=== PATIENT | male | born 1995 | race Caucasian/White ===

== ENCOUNTER 2020-04-16 16:36 | Outpatient (REF) | payer OTHER, SELFPAY | END 2020-04-16 16:37 | disposition home or self-care (01) | LOC: HO.LAB 16:36 | PROVIDERS: Visit Provider Internal Medicine | DX: Z20.822 Contact with and (suspected) exposure to COVID-19 (principal) | CPT/HCPCS: 36415; C9803; U0003 ==

== ENCOUNTER 2020-07-23 12:46 | Outpatient (REF) | payer OTHER, SELFPAY | END 2020-07-23 12:47 | disposition home or self-care (01) | LOC: HO.LAB 12:46 | PROVIDERS: Visit Provider Internal Medicine | DX: Z20.822 Contact with and (suspected) exposure to COVID-19 (principal) | CPT/HCPCS: C9803; U0003; U0005 ==

== ENCOUNTER 2020-09-03 22:39 | Emergency (ER) | payer OTHER, SELFPAY ==
[2020-09-03 23:21] VITALS: BP 144/87; PULSE 79; RESP 14; O2SAT 97; BMI 20.9
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
== END 2020-09-04 01:09 | disposition home or self-care (01) ==
PROVIDERS: Emergency Provider Internal Medicine
DX: T23.212A Burn of second degree of left thumb (nail), initial encounter (principal); T23.211A Burn of second degree of right thumb (nail), initial encounter; T31.0 Burns involving less than 10% of body surface; X15.8XXA Contact with other hot household appliances, initial encounter; Y93.G2 Activity, grilling and smoking food; Y92.017 Garden or yard in single-family (private) house as the place of occurrence of the external cause; Y99.9 Unspecified external cause status
CPT/HCPCS: 16030; 99283

== ENCOUNTER 2020-11-29 14:16 | Outpatient (REF) | payer OTHER, SELFPAY | END 2020-11-29 14:17 | disposition home or self-care (01) | LOC: HO.LAB 14:16 | PROVIDERS: Visit Provider Internal Medicine | DX: Z20.822 Contact with and (suspected) exposure to COVID-19 (principal) | CPT/HCPCS: C9803; U0003; U0005 ==